=== PATIENT | female | born 1965 | race American Indian/Alaskan Native ===

== ENCOUNTER 2018-01-02 10:11 | Day surgery (SDC) | payer OTHER ==
[~2018-01-02 10:11] MED LIST: ANCEF/STERILE WATER 2 GM/20 ML IV NR; LACTATED RINGERS 1,000 ML IV SCH; VERSED IV NR
[2018-01-02 11:22] LABS: BUN/Creatinine Ratio 28; Blood Urea Nitrogen 14 mg/dL (7-17); Calcium 9.6 mg/dL (8.4-10.2); Hemolysis Index 6
--- NOTE | 2018-01-02 11:55 | Anesthesia Consultation ---
Anesthesia Consult and Med Hx Date of service: 01/02/18 - Airway Anesthetic Teeth Evaluation: Good ROM Head & Neck: Adequate Mental/Hyoid Distance: Adequate Mallampati Class: Class III Intubation Access Assessment: Probably Good - Pulmonary Exam CTA: Yes - Cardiac Exam Cardiac Exam: RRR - Pre-Operative Health Status ASA Pre-Surgery Classification: ASA3 Proposed Anesthetic Plan: General - Pulmonary Hx Smoking: No Hx Sleep Apnea: Yes - Cardiovascular System Hx Hypertension: Yes (X 6YEARS) - Central Nervous System Hx Psychiatric Problems: No - Gastrointestinal Hx Gastroesophageal Reflux Disease: No - Other Systems Hx Alcohol Use: Yes Hx Substance Use: No
[2018-01-02] MEDS ORDERED: TORADOL IV PRN (11:57)
[2018-01-02] MEDS ORDERED: ZOFRAN IV PRN (11:57)
[2018-01-02] MEDS ORDERED: DILAUDID IV PRN (11:57)
--- NOTE | 2018-01-02 11:57 | Anesthesia Day of Surgery ---
Anesthesia Day of Surgery - Day of Surgery Patient Examined: Yes Patient H&P Reviewed: Yes Patient is NPO: Yes
[2018-01-02] MEDS ORDERED: PEPCID IV NR (12:00)
[2018-01-02] MEDS ORDERED: XYLOCAINE 1% 20 mL ONE (13:53)
[2018-01-02] MEDS ORDERED: MARCAINE 0.25% INFILTRATI ONE ×2 (13:53→14:33)
[2018-01-02] MEDS ORDERED: DIPRIVAN 10 MG/ML IV ONE (14:03)
[2018-01-02] MEDS ORDERED: SUBLIMAZE ONE (14:03)
[2018-01-02] MEDS ORDERED: XYLOCAINE MPF 2% ONE (14:04)
[2018-01-02] MEDS ORDERED: VERSED ONE (14:11)
[2018-01-02] MEDS ORDERED: XYLOCAINE 1% 20 mL INFILTRATI ONE (14:34)
[2018-01-02] MEDS ORDERED: ZOFRAN ONE (14:34)
[2018-01-02] MEDS ORDERED: NACL 0.9% IR ONE (14:34)
--- NOTE | 2018-01-02 14:56 | Post Operative Note ---
Pre-op diagnosis: Soft tissue mass left hip Post-op diagnosis: same Findings: Lipoma 18 cmx 12 cm Procedure: Exc STM left hip Anesthesia: MAC Surgeon: MARCI HILARIO Estimated blood loss: minimal Pathology: list (soft tissue mass) Specimen disposition: to lab Condition: stable Disposition: PACU
--- NOTE | 2018-01-02 14:58 | Discharge Summary ---
Short Stay Discharge Plan Weight Bearing Status: Full Weight Bearing Diet: regular Wound: change dressing (on Friday 01/05 - november shower daily after that - cover with band aids if necessary) Follow up with: CHARO LEON [Primary Care Provider] - 7 Days Prescriptions: HYDROcodone/APAP 5-325 [[place] 5-325 mg TAB] 1 each PO Q4HR PRN #20 tablet PRN Reason: Pain
--- NOTE | 2018-01-02 15:11 | Operative Report ---
PREOPERATIVE DIAGNOSIS: Soft tissue mass, left hip area. POSTOPERATIVE DIAGNOSIS: Soft tissue mass. OPERATIVE PROCEDURE: Excision of soft tissue mass. ANESTHESIA: Local 1% Xylocaine and 0.25% Marcaine IV sedation. INDICATIONS: A 52-year-old female patient with BMI of 43, presenting with symptomatic visible and palpable mass in the left anterolateral hip area. FINDINGS: Multilobulated subcutaneous lipoma measuring 18 cm to 12 cm. No extension into the muscles noted. Specimen sent for histopathological examination. DESCRIPTION OF PROCEDURE: The patient was placed left side up lateral position, held in place by a beanbag. Operative area prepped and draped and after adequate IV sedation skin incision was made after infiltrating local anesthetic. This was for a length of 7-8 cm. Subcutaneous tissue was divided. All the adhesions to the mass was taken down and by digital palpation and by blunt and sharp dissection the mass was delivered into the wound and the remainder of the attachments were taken down. Minimal bleeding was controlled by cautery. Wound was irrigated with saline solution. Deeper tissues were approximated with multiple interrupted 3-0 Vicryl to reduce the space. Subdermal tissue approximated with 3-0 Vicryl and skin with 4-0 Monocryl. Steri-Strips and pressure dressings were placed and she tolerated the procedure well. JOB# [id number] JAE/LIDIA
--- NOTE | 2018-01-02 16:16 | Post Anesthesia Evaluation ---
- Post Anesthesia Evaluation Patient Participated: Yes Airway Patent: Yes Stable Respiratory Function: Yes Nausea/Vomiting: No Temp > 96.8F: Yes Pain Manageable: Yes Adequeate Hydration: Yes Anesthesia Complications: No
[2018-01-02 17:11] VITALS: BP 117/83
== END 2018-01-02 16:20 | disposition home or self-care (01) ==
LOC: OR 10:11
PROVIDERS: ATTEND Surgery
DX: D17.24 Benign lipomatous neoplasm of skin and subcutaneous tissue of left leg (principal); I10 Essential (primary) hypertension; E78.5 Hyperlipidemia, unspecified; E11.9 Type 2 diabetes mellitus without complications; G47.33 Obstructive sleep apnea (adult) (pediatric); Z79.899 Other long term (current) drug therapy; Z90.710 Acquired absence of both cervix and uterus; Z98.890 Other specified postprocedural states; Z79.84 Long term (current) use of oral hypoglycemic drugs; Z79.82 Long term (current) use of aspirin
CPT/HCPCS: 27043; 36415; 80048; 82962; 88304; J0690; J2250; J2405; J2704; J3010; J7120